=== PATIENT | male | born 1955 | race Caucasian/White ===

== ENCOUNTER 2022-01-23 16:17 | Inpatient (IN) | payer OTHER ==
[2022-01-23] MEDS ORDERED: hydrALAZINE 20 MG/ML VIAL SLOW IVP PRN (18:18)
[2022-01-23] MEDS ORDERED: Ondansetron PF 4 MG/2 ML Vial IVP PRN (18:18)
[2022-01-23] MEDS ORDERED: Dextrose 50% Abboject 50 ML SYRINGE SLOW IVP PRN (18:18)
[2022-01-23] MEDS ORDERED: Morphine 4 MG/ML VIAL SLOW IVP PRN (18:18)
[2022-01-23] MEDS ORDERED: Dextrose 5% in Water 1,000 ML IV PRN (18:18)
[2022-01-23] MEDS ORDERED: traMADol HCl 50 MG TAB PO PRN (18:21)
[2022-01-23 18:32] LABS: #Eosinphils 0.1 thou/uL (0.0-0.7); #Lymphocytes 0.8 thou/uL (1.20-3.40); #Neutrophils 5.8 thou/uL (1.40-6.50); %Basophils 0.1 % (0.0-1.0); %Eosinophils 0.9 % (0.0-10.0); %Lymphocytes 9.8 % (21.0-51.0); %Monocytes 13.5 % (0.0-10.0); %Neutrophils 75.6 % (42.0-75.0); Hemoglobin 13.5 g/dL (14.0-18.0); Mean Corpuscular Hemoglobin 33.7 pg (27.0-31.0); Mean Platelet Volume 8.4 fL (7.4-10.4); Platelet Count 177 thou/uL (130-400); RBC Distribution Width 12.5 % (11.5-14.5); White Blood Cell (WBC) Count 7.6 thou/uL (4.8-10.8)
[2022-01-23 19:01] LABS: Alcohol Less than 10 mg/dL (Less than 10); Phosphorus 3.2 mg/dL (2.3-4.7)
[2022-01-23 19:02] LABS: ALT (SGPT) 44 U/L (8-55); AST (SGOT) 43 U/L (5-34); Albumin 4.1 g/dL (3.4-4.8); Alkaline Phosphatase 110 U/L (40-110); Anion Gap 17 mmol/L (10-20); BUN (Urea Nitrogen) 8 mg/dL (8.4-25.7); Bilirubin, Total 0.9 mg/dL (0.2-1.2); Calc. Creatinine Clearance 0 mL/min (70-130); Calcium 9.6 mg/dL (7.8-10.44); Carbon Dioxide 26 mmol/L (23-31); Chloride 99 mmol/L (98-107); Estimated GFR 97; Globulin 3.3 g/dL (2.4-3.5); Glucose 99 mg/dL (80-115); Magnesium 2.1 mg/dL (1.6-2.6); Potassium 4.3 mmol/L (3.5-5.1); Protein, Total 7.4 g/dL (5.8-8.1); Sodium 138 mmol/L (136-145)
[2022-01-23 20:40] VITALS: BMI 14.0
[2022-01-23] MEDS ORDERED: Famotidine 20 MG TAB PO SCH (21:00)
[2022-01-23] MEDS: Gabapentin 300 MG CAP PO SCH (21:24)
[2022-01-23] MEDS: Senokot S 8.6-50 MG TAB PO SCH (21:24)
[2022-01-23] MEDS: Ibuprofen 200 MG TAB PO SCH (21:24)
[2022-01-23] MEDS: Oxazepam 10 MG CAP PO SCH (21:26)
[2022-01-24] MEDS: Acetaminophen 500 MG TAB PO SCH ×2 (00:24→06:17)
[2022-01-24] MEDS: traMADol HCl 50 MG TAB PO SCH ×3 (00:25→11:22)
[2022-01-24] MEDS: Ibuprofen 200 MG TAB PO SCH ×2 (06:17→13:53)
[2022-01-24] MEDS: Oxazepam 10 MG CAP PO SCH ×2 (06:18→13:52)
[2022-01-24] MEDS ORDERED: Folic Acid 1 MG TAB PO SCH (09:00)
[2022-01-24] MEDS ORDERED: Thiamine 100 MG TAB PO SCH (09:00)
[2022-01-24] MEDS ORDERED: Polyethylene Glycol 3350 17 GM Packet PO SCH (09:00)
[2022-01-24] MEDS ORDERED: Amlodipine 10 MG TAB PO SCH (09:00)
[2022-01-24] MEDS ORDERED: Multivitamin W/ Minerals 1 TAB PO SCH (09:00)
[2022-01-24] MEDS ORDERED: Enoxaparin Sodium 40 MG/0.4 ML SYRINGE SC SCH (09:00)
[2022-01-24] MEDS: Gabapentin 300 MG CAP PO SCH ×2 (09:17→13:52)
[2022-01-24] MEDS: Senokot S 8.6-50 MG TAB PO SCH (09:18)
[2022-01-24] MEDS ORDERED: Acetaminophen 325 MG TAB PO SCH (12:00)
[2022-01-24 12:05] VITALS: BP 134/81; TEMP 98
== END 2022-01-24 15:30 | disposition home or self-care (01) | DRG 552 ==
LOC: ERS 16:17 → SJJU 18:18
PROVIDERS: ADMIT Surgery; ATTEND Surgery
DX: S22.018A Other fracture of first thoracic vertebra, initial encounter for closed fracture (principal); S12.090A Other displaced fracture of first cervical vertebra, initial encounter for closed fracture; S12.190A Other displaced fracture of second cervical vertebra, initial encounter for closed fracture; S12.290A Other displaced fracture of third cervical vertebra, initial encounter for closed fracture; S12.390A Other displaced fracture of fourth cervical vertebra, initial encounter for closed fracture; S12.490A Other displaced fracture of fifth cervical vertebra, initial encounter for closed fracture; S12.590A Other displaced fracture of sixth cervical vertebra, initial encounter for closed fracture; S12.690A Other displaced fracture of seventh cervical vertebra, initial encounter for closed fracture; S16.1XXA Strain of muscle, fascia and tendon at neck level, initial encounter; W11.XXXA Fall on and from ladder, initial encounter; I10 Essential (primary) hypertension; K21.9 Gastro-esophageal reflux disease without esophagitis; F17.220 Nicotine dependence, chewing tobacco, uncomplicated; N40.0 Benign prostatic hyperplasia without lower urinary tract symptoms; Y92.89 Other specified places as the place of occurrence of the external cause
CPT/HCPCS: 36415; 80053; 80307; 83735; 84100; 85025; 99284; G0390; J1650; J2270

== ENCOUNTER 2022-02-15 09:32 | Outpatient (CLI) | payer OTHER | END 2022-02-15 09:33 | disposition home or self-care (01) | LOC: TBSIIMAG 09:32 | PROVIDERS: ATTEND Neurological Surgery | DX: S12.090A Other displaced fracture of first cervical vertebra, initial encounter for closed fracture (principal); M47.812 Spondylosis without myelopathy or radiculopathy, cervical region | CPT/HCPCS: 72040 ==

== ENCOUNTER 2022-04-11 14:22 | Outpatient (CLI) | payer OTHER | END 2022-04-11 14:23 | disposition home or self-care (01) | LOC: TBSIIMAG 14:22 | PROVIDERS: ATTEND Neurological Surgery | DX: S12.9XXA Fracture of neck, unspecified, initial encounter (principal) | CPT/HCPCS: 72040 ==